=== PATIENT | male | born 1950 | race Caucasian/White ===

== ENCOUNTER → 2019-09-02 | Day surgery (SDC) | payer MEDICARE, OTHER ==
[~2019-09-02] MED LIST: ACETAMINOPHEN 325 MG TABLET PO PRN; ALBUTEROL SULFATE 2.5 MG/3 ML NEBU. NEB PRN; AMLO5TAB10 PO; ASPI81TA59 PO; ATROPINE 0.5 MG/5 ML DISP.SYRIN. IV PRN; IV RINGERS SOLUTION,LACTATED 1,000 ML IV SCH; LOSA100T14 PO; ONDANSETRON PF 4 MG/2 ML VIAL. IV PRN; PHENOL ORAL SPRAY 177ML BOTTLE. MM PRN; PROPOFOL 40 ML IV ONE; SIMV20TA18 PO; SUCCINYLCHOLINE 200 MG/10 ML VIAL. ONE; diphenhydrAMINE 50 MG/ML VIAL IV PRN
[2019-09-02 09:15] VITALS: BP 134/89
== END ==
LOC: SURG 06:39
PROVIDERS: ATTEND Internal Medicine Gastroenterology
DX: Z12.11 Encounter for screening for malignant neoplasm of colon (principal); K57.30 Diverticulosis of large intestine without perforation or abscess without bleeding; K64.8 Other hemorrhoids; I10 Essential (primary) hypertension; E78.5 Hyperlipidemia, unspecified; Z79.82 Long term (current) use of aspirin; Z86.010 Personal history of colon polyps
CPT/HCPCS: G0105; J2704; J7120; 45378; J0330